=== PATIENT | male | born 1930 | race Caucasian/White ===

== ENCOUNTER 2017-03-01 11:58 | Day surgery (SDC) | payer MEDICARE ==
[2017-02-28 17:49] VITALS: BMI 28.4
--- NOTE | 2017-03-01 19:50 | OP ---
PREOPERATIVE DIAGNOSIS: History of colon polyps. PROCEDURE IN DETAIL: After informed consent was obtained, the patient placed in the left lateral de cubitus position. Anesthesia was administered per the Anesthesia Department. Forward-viewing endos cope was inserted into the rectum after perianal inspection and rectal exam were normal and passed t o the cecum. The cecum, ileocecal valve, and appendiceal orifice were normal. The prep was excelle nt. A small 3 mm polyp was seen in the cecum and removed with snare electrocautery. In the ascendi ng, 2 polyps were seen and removed with snare electrocautery. In the transverse, 2 polyps were seen and removed with snare electrocautery. In the rectum, one polyp was seen and removed with snare el ectrocautery. Diffuse diverticula were noted throughout the colon. ASSESSMENT: 1. Six colon polyps - status post polypectomy. 2. Diffuse diverticulosis coli. 3. Otherwise normal colonoscopy. RECOMMENDATIONS: Await histopathology.
== END 2017-03-01 16:15 | disposition home or self-care (01) ==
LOC: SDC 11:58
PROVIDERS: ATTEND Internal Medicine Gastroenterology
PROC: 0DBK8ZX Excision of Ascending Colon, Via Natural or Artificial Opening Endoscopic, Diagnostic (ICD-10-PCS; principal; 2017-03-01)
PROC: 0DBH8ZX Excision of Cecum, Via Natural or Artificial Opening Endoscopic, Diagnostic (ICD-10-PCS; 2017-03-01)
DX: Z12.11 Encounter for screening for malignant neoplasm of colon (principal); D12.2 Benign neoplasm of ascending colon; D12.0 Benign neoplasm of cecum; K57.30 Diverticulosis of large intestine without perforation or abscess without bleeding; F17.200 Nicotine dependence, unspecified, uncomplicated; Z88.0 Allergy status to penicillin; Z88.8 Allergy status to other drugs, medicaments and biological substances; Z79.899 Other long term (current) drug therapy; Z90.49 Acquired absence of other specified parts of digestive tract; Z95.1 Presence of aortocoronary bypass graft; Z98.890 Other specified postprocedural states; Z87.19 Personal history of other diseases of the digestive system
CPT/HCPCS: 88305

== ENCOUNTER 2017-04-01 14:28 | Observation (INO) | payer MEDICARE ==
[2017-04-01 15:03] LABS: #Basophils 0.1 thou/uL (0.0-0.2); #Eosinphils 0.2 thou/uL (0.0-0.7); #Monocytes 0.6 thou/uL (0.11-0.59); #Neutrophils 4.7 thou/uL (1.40-6.50); %Basophils 1.1 % (0.0-1.0); %Eosinophils 2.2 % (0.0-10.0); %Lymphocytes 26.4 % (21.0-51.0); %Monocytes 8.1 % (0.0-10.0); Hematocrit 44.1 % (42.0-52.0); Mean Platelet Volume 9.2 fL (7.4-10.4); Red Blood Cell (RBC) Count 5.48 mill/uL (4.70-6.10); White Blood Cell (WBC) Count 7.5 thou/uL (4.8-10.8)
[2017-04-01 15:23] LABS: ALT (SGPT) 26 U/L (8-55); AST (SGOT) 21 U/L (5-34); Alkaline Phosphatase 73 U/L (40-150); Anion Gap 9 mmol/L (10-20); BUN (Urea Nitrogen) 31 mg/dL (8.4-25.7); Bilirubin, Total 0.5 mg/dL (0.2-1.2); CK (CPK) 49 U/L (30-200); Calc. Creatinine Clearance 0 mL/min (70-130); Carbon Dioxide 28 mmol/L (23-31); Chloride 107 mmol/L (98-107); Estimated GFR-MDRD 42; Globulin 2.7 g/dL (2.4-3.5); Protein, Total 6.5 g/dL (5.8-8.1)
[2017-04-01 15:26] LABS: Troponin I Less than 0.010 ng/mL (< 0.028)
--- NOTE | 2017-04-01 16:13 | RAD ---
CHEST 1 VIEW: Date: 04/01/17 HISTORY: Left arm pain. COMPARISON: Chest 1 view dated 02/15/16. FINDINGS: Lungs are clear. No pneumothorax or effusion. Cardiac silhouette and mediastinal contour is within no rmal limits. IMPRESSION: No acute intrathoracic abnormality. POS: [facility]
[2017-04-01 18:41] LABS: Troponin I Less than 0.010 ng/mL (< 0.028)
--- NOTE | 2017-04-01 18:46 | CT ---
CT HEAD NONCONTRAST 04/01/17 HISTORY: Altered mental status. Left arm weakness. FINDINGS: No comparison. There is no evidence of acute intracranial hemorrhage or infarct. old lacunar infarct is noted at the right periventricular white matter and basal ganglia. There is no mass effect or shift of midline st ructures. The visualized paranasal sinuses remain well aerated. IMPRESSION: Evidence of old vascular insults. No acute intracranial abnormalities are demonstrated on noncontrast CT head. POS: [facility]
[2017-04-01] MEDS ORDERED: Ondansetron HCl/PF 4 MG/2 ML Vial IVP PRN (20:17)
[2017-04-01] MEDS ORDERED: Ondansetron ODT 4 MG TAB SL PRN (20:17)
[2017-04-01 21:24] VITALS: BMI 29.6
[2017-04-02] MEDS ORDERED: Furosemide 20 MG TAB PO PRN (07:58)
[2017-04-02] MEDS: Aspirin 81 mg Enteric Coated Tablet PO SCH (08:53)
[2017-04-02] MEDS ORDERED: Finasteride 5 MG TAB PO SCH (09:00)
[2017-04-02] MEDS ORDERED: Apixaban 5 MG TAB PO SCH (09:00)
[2017-04-02] MEDS: Lactinex Tablet PO SCH (09:04)
[2017-04-02 09:12] LABS: Free T3 2.02 pg/mL (1.71-3.71)
--- NOTE | 2017-04-02 12:25 | CON ---
DATE OF CONSULTATION: 04/02/2017 CARDIOLOGY CONSULTATION REASON FOR CONSULTATION: Chest pain. HISTORY OF PRESENT ILLNESS: Mr. Albrecht is a very pleasant 86-year-old white gentleman who comes to the hospital for left arm pain. He was at home just watching TV and suddenly had an onset of left upper chest pain that radiates to the left shoulder and left arm. It lasted about 30 minutes about 8/10 in intensity and it just went away on its own in the chest area, but remained on the arm. He went to bed yesterday at about 6 p.m. which is not unusual, but really not his normal. At about 8:30 p.m., his tried to wake him up and he was very hard to arouse. Eventually, he woke up and he was confused after waking up. Because he kept having pain this morning, he decided to come in for further evaluation. He has a history of coronary artery disease and he has had bypass in the past, has had a defibrillator placed as well. He follows with Dr. Mitchell. Currently, he denies any more chest pain or arm pain, but he admits he feels he does not have a good control of his left arm and left hand. He feels that he cannot feed himself adequately and feels like he misses with the spoon if he tries to. PAST MEDICAL HISTORY: 1. Coronary artery disease with history of coronary artery bypass grafting in 1991 to an OM and FRANK to the RCA. His last stress was in [address] Mitchell and it was normal. He had an EF of 25%-30% at one point and required an AICD placement. Most recent evaluation of LV function in the office was heart catheterization that happened in 10/2016. He had an occluded LAD, an occluded RCA, a patent FRANK to an OM, and patent free ANTHONY to the RCA. FRANK is also a free ANTHONY. He had good collateral flow from the RCA to the LAD. At that time, no LV gram was done, but echo was done just a week before, then he had an EF of 30%-35% with akinetic anterior wall and what appeared to be a thrombus in the apex of the LV calcified, which is thought to be probably old at that time. There was mild to moderate MR and TR. 2. Basal cell carcinoma of the face. PAST SURGICAL HISTORY: 1. Tonsillectomy. 2. Cholelithiasis. 3. Cataract surgery. 4. Cholecystectomy. 5. Defibrillator placement as well. 6. Cardioversion in the past. FAMILY HISTORY: Father with heart disease. Mother of a stroke. SOCIAL HISTORY: Occasional cigarette use. No alcohol or drugs. REVIEW OF SYSTEMS: A 12-point review of systems was done and is all negative unless stated in the history of present illness. OUTPATIENT MEDICATIONS: Include, 1. Finasteride. 2. Vitamin D3. 3. Probiotic. 4. Aricept. 5. Aspirin 81 a day. 6. Actonel. 7. Amiodarone 200 mg a day. 8. Crestor 20 mg a day. 9. Tamsulosin 0.4 capsule at bedtime. 10. Toprol-XL 25 mg. 11. Furosemide 200 mg a day. 12. Eliquis 2.5 mg twice a day, this was started at that time when his echo found possible thrombus and he has been on it since. ALLERGIES: 1. LISINOPRIL causes cough. 2. NIACIN causes nausea. 3. PENICILLIN causes skin problems. PHYSICAL EXAMINATION: VITAL SIGNS: Temperature 98.5, pulse 70, respiratory rate 18, satting 95% on room air, blood pressure 160/87. GENERAL: Awake, alert, oriented x3, in no distress. HEENT: Normocephalic, atraumatic. NECK: Supple. LUNGS: Clear. CARDIOVASCULAR: S1 and S2, no S3 or S4 noted. There is a grade 2/6 systolic murmur at the right upper sternal border. PMI is laterally displaced and diffuse. ABDOMEN: Soft. Positive bowel sounds. EXTREMITIES: Trace edema. SKIN: Warm and dry. LABORATORY DATA AND IMAGING: Laboratory work was reviewed. White count 7.5, hemoglobin 13, hematocrit 44, and platelet count of 118. Chemistry: Sodium of 140, potassium is 4.0, carbon dioxide of 20, anion gap of 9, BUN of 31, creatinine 1.57, GFR of 42, troponins are negative x3. TSH was a little above 0.05 with normal free T3 and free T4, albumin is 3.8. EKG was reviewed. CT of the brain showed no acute abnormality. There is evidence of old vascular insults. ASSESSMENT AND PLAN: 1. Chest pain: Unlikely to be cardiac, at least not an acute coronary syndrome given his coronary anatomy, which was recently valvular degenerative disease. We will probably hold on any risk stratification at this time as he had such a recent heart catheterization. We will get interrogation of his device as this may be related to some sort of arrhythmia as well. We will do an echocardiogram. Because of his age and his kidney function he is on correct dose of Eliquis. Thank you for letting us to participate in the care of your patient. We will follow. MARCO ANTONIO
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
[2017-04-02] MEDS: APIXABAN 2.5 MG PO SCH (20:36)
[2017-04-02] MEDS ORDERED: Tamsulosin HCl 0.4 MG CAP PO SCH ×4 (21:00)
[2017-04-03 08:11] VITALS: BP 140/77; TEMP 97.9
[2017-04-03] MEDS: Aspirin 81 mg Enteric Coated Tablet PO SCH (08:20)
[2017-04-03] MEDS: Lactinex Tablet PO SCH (08:20)
[2017-04-03] MEDS: APIXABAN 2.5 MG PO SCH (08:20)
[2017-04-03] MEDS ORDERED: Finasteride 5 MG TAB PO SCH ×4 (09:00)
--- NOTE | 2017-04-03 19:02 | DIS ---
HOSPITAL COURSE: Mr. Ferrera is an 86-year-old man treated by Dr. Duy Beckford with kno wn coronary artery disease who essentially presented with, 1. Left-sided chest pain, shoulder pain that radiated down his left lower extremity. Serial evaluat ion showed no evidence of a myocardial infarction. He was seen in consultation by Dr. Boss, his cu rrent symptoms were likely not cardiac in origin. He did have an echocardiogram, which showed an eje ction fraction of 35-40% with some anterior hypokinesis and inferior septal akinesis grade 1/3 diasto lic dysfunction and akinesis at the apex. 2. He reports several years of some low back pain, but has been having lower extremity weakness. He had equal and bilateral hamstring and quadriceps weakness (while his upper extremities were equal an d 5/5 in motor strength at the biceps, triceps, and hand [employer]). 3. Suppressed TSH. Thyroid function tests were obtained which showed a normal T3 and free T4, but a suppressed TSH at low level of 0.0507. I discussed with the patient and his son at the bedside how this likely represents subclinical hyperthyroidism and an Endocrinology opinion would be beneficial. 4. Patient admits to some memory loss. His daughter indicated that he had very little problem and h is son also reported that the most part he was doing quite well with some only spotty occasional shor t term memory problems. The reported dose of his Aricept was larger than a usual dose and in convers ation with the son, who would like his medications evaluated to see if some be discontinued and if so me could possibly be interacting with other medications or causing significant side effects such that they might be discontinued, it was deemed that at this time Aricept would be discontinued and he cou ld have follow up for this. ASSESSMENT: 1. Left-sided chest pain with left shoulder and left arm pain, no myocardial infarction. 2. Ischemic cardiomyopathy with ejection fraction 35-40%. 3. Chronic low back pain with some lower extremity weakness, discussed, seen Neurology for this, as well as memory loss. 4. Memory loss as per above. 5. Subclinical hyperthyroidism and in view of his history of cardiac dysrhythmias, there may be a gr eater benefit to treatment of his some clinical hyperthyroidism. 6. Chronic kidney disease with a GFR of 38 on 03/28/2017. 7. Long history of tobacco abuse, now discontinued. PLAN: 1. Discharge home today. Follow up with Dr. Beckford within 1 week. Recommend specialist referral for Endocrinology to evaluate treatment for subclinical hyperthyroidism. 2. Follow up with Cardiology within the next week or two. 3. Neurology opinion on memory loss and lower extremity weakness. HOME MEDICATIONS: Include amiodarone 200 mg daily, Crestor 20 mg daily, Eliquis 2.5 mg twice daily, Toprol-XL 12.5 mg twice daily, gabapentin 300 mg 3 times daily, Aricept discontinued, finasteride 5 m g daily, Actonel 35 mg once weekly, 81 mg aspirin daily, vitamin D 3000 units daily, Flomax 0.4 mg da chrystal, furosemide 20 mg daily, probiotic 1 daily.
== END 2017-04-03 10:34 | disposition home or self-care (01) ==
LOC: ERS 14:28 → 2SE 19:53
PROVIDERS: ADMIT Family Medicine; ATTEND Family Medicine
DX: R07.9 Chest pain, unspecified (principal); I25.5 Ischemic cardiomyopathy; M54.5 Low back pain; G89.29 Other chronic pain; M79.602 Pain in left arm; R41.3 Other amnesia; E05.90 Thyrotoxicosis, unspecified without thyrotoxic crisis or storm; N18.9 Chronic kidney disease, unspecified; I25.10 Atherosclerotic heart disease of native coronary artery without angina pectoris; R29.898 Other symptoms and signs involving the musculoskeletal system; I49.9 Cardiac arrhythmia, unspecified; Z79.01 Long term (current) use of anticoagulants; Z79.82 Long term (current) use of aspirin; Z79.899 Other long term (current) drug therapy; Z88.0 Allergy status to penicillin; Z88.8 Allergy status to other drugs, medicaments and biological substances; Z98.52 Vasectomy status; Z98.49 Cataract extraction status, unspecified eye; Z95.810 Presence of automatic (implantable) cardiac defibrillator; Z95.1 Presence of aortocoronary bypass graft; Z90.89 Acquired absence of other organs; Z90.49 Acquired absence of other specified parts of digestive tract; Z98.890 Other specified postprocedural states; Z87.442 Personal history of urinary calculi; Z87.891 Personal history of nicotine dependence
CPT/HCPCS: 70450; 71010; 80053; 82550; 82553; 84439; 84443; 84481; 84484 ×2; 85025; 93005; 93306; 94760; 99285; G0378; 36415

== ENCOUNTER 2017-07-04 10:37 | Emergency (ER) | payer MEDICARE ==
--- NOTE | 2017-07-04 11:19 | RAD ---
PORTABLE CHEST: HISTORY: Syncope. COMPARISON: 04/01/2017 FINDINGS: The lungs appear clear. No evidence of infiltrate. Parenchymal op in the right upper lung is stable and may represent scarring. Heart size is upper normal and stable. Postop sternotomy change and AI CD leads are unchanged in appearance. IMPRESSION: No acute finding or interval change. POS: [facility]
[2017-07-04 11:58] LABS: ALT (SGPT) 28 U/L (8-55); Albumin 3.5 g/dL (3.4-4.8); Alkaline Phosphatase 54 U/L (40-150); BUN (Urea Nitrogen) 25 mg/dL (8.4-25.7); Bilirubin, Total 0.6 mg/dL (0.2-1.2); CK (CPK) 44 U/L (30-200); Calc. Creatinine Clearance 0 mL/min (70-130); Calcium 8.5 mg/dL (7.8-10.44); Carbon Dioxide 19 mmol/L (23-31); Estimated GFR-MDRD 35; Globulin 3.2 g/dL (2.4-3.5); Glucose 164 mg/dL (83-110)
[2017-07-04 12:00] LABS: CKMB 1.1 ng/mL (0-6.6)
[2017-07-04 12:08] LABS: AST (SGOT) 28 U/L (5-34); Anion Gap 16 mmol/L (10-20); Chloride 110 mmol/L (98-107); Potassium 4.8 mmol/L (3.5-5.1); Protein, Total 6.4 g/dL (5.8-8.1); Sodium 140 mmol/L (136-145)
[2017-07-04 12:12] LABS: Troponin I Less than 0.010 ng/mL (< 0.028)
[2017-07-04 12:34] LABS: #Eosinphils 0.1 thou/uL (0.0-0.7); #Lymphocytes 1.3 thou/uL (1.20-3.40); #Monocytes 0.6 thou/uL (0.11-0.59); #Neutrophils 5.3 thou/uL (1.40-6.50); %Basophils 0.4 % (0.0-1.0); %Eosinophils 1.8 % (0.0-10.0); %Monocytes 8.2 % (0.0-10.0); %Neutrophils 72.6 % (42.0-75.0); Hemoglobin 14.1 g/dL (14.0-18.0); Mean Corpuscular HGB CONC 31.1 g/dL (32.0-36.0); Mean Corpuscular Hemoglobin 24.7 pg (27.0-31.0); Mean Corpuscular Volume 79.6 fl (80.0-94.0); Mean Platelet Volume 9.1 fL (7.4-10.4); Platelet Count 132 thou/uL (130-400); RBC Distribution Width 14.1 % (11.5-14.5); Red Blood Cell (RBC) Count 5.72 mill/uL (4.70-6.10); White Blood Cell (WBC) Count 7.4 thou/uL (4.8-10.8)
--- NOTE | 2017-07-04 12:35 | CT ---
CT BRAIN WITHOUT CONTRAST: HISTORY: Weakness, on Eliquis. COMPARISON: CT brain 04/01/17. FINDINGS: No acute territorial infarct or hemorrhage. No midline shift. No mass effect. Ventricular size and extraaxial CSF spaces are similar. Old basal ganglia infracts. Old infarct right caudate body. The calvarium is intact. Mild mucosal thickening of the ethmoids. There is a right-sided osseous sp ur of the osseous nasal septum. The mastoids are well aerated. Temporomandibular joints are intact. IMPRESSION: No acute intracranial abnormality. Chronic changes. POS: [facility]
[2017-07-04 13:14] LABS: Bilirubin Small (Negative); Blood, Urine Negative (Negative); Clarity CLOUDY (Clear); Glucose, Urine (Dipstick) Negative (Negative); Leukocyte Negative (Negative); Nitrite Negative (Negative); Protein, Urine (Dipstick) 30 mg/dL (Neg-Trace); Specific Gravity, Urine 1.031 (1.002-1.036); Urobilinogen 0.2 mg/dL (0.2-1.0)
[2017-07-04 13:19] LABS: Bacteria/HPF None Seen HPF (None Seen); Pathc Cast-AUWi Flag 1.89 (0-2.49); RBC/HPF 0-3 HPF (0-3)
[2017-07-04 13:38] LABS: Crystals/HPF 2+ CA OXALATE HPF (Negative); Renal Epithelial None Seen HPF (0-3); Transitional Epithelial NONE SEEN HPF (0-3)
--- NOTE | 2017-07-09 13:29 | EKG ---
Test Reason : Blood Pressure : / mmHG Vent. Rate : 077 BPM Atrial Rate : 077 BPM P-R Int : 000 ms QRS Dur : 126 ms QT Int : 468 ms P-R-T Axes : 000 104 105 degrees QTc Int : 529 ms Atrial-paced rhythm with prolonged AV conduction Rightward axis Non-specific intra-ventricular conduction block Cannot rule out Anteroseptal infarct , age undetermined Abnormal ECG Confirmed by REJI FELDMAN M.D. ([id number]), story editor JOSE ESTEBAN ([id number]) on 07/09/2017 1:29:03 PM Referred By: Confirmed By:REJI FELDMAN M.D.
== END 2017-07-04 16:48 | disposition home or self-care (01) ==
LOC: ERS 10:37
DX: I95.1 Orthostatic hypotension (principal); I25.10 Atherosclerotic heart disease of native coronary artery without angina pectoris; I10 Essential (primary) hypertension; N40.0 Benign prostatic hyperplasia without lower urinary tract symptoms; Z87.891 Personal history of nicotine dependence; Z79.899 Other long term (current) drug therapy; Z87.442 Personal history of urinary calculi
CPT/HCPCS: 70450; 71045; 80053; 81003; 81015; 82550; 82553; 84484; 85025; 87086; 93005; 94760; 96360; 96361

== ENCOUNTER 2017-07-05 07:57 | Outpatient (CLI) | payer MEDICARE ==
[2017-07-05 09:18] LABS: Anion Gap 10 mmol/L (10-20); BUN (Urea Nitrogen) 21 mg/dL (8.4-25.7); Calc. Creatinine Clearance 0 mL/min (70-130); Calcium 8.5 mg/dL (7.8-10.44); Carbon Dioxide 26 mmol/L (23-31); Chloride 108 mmol/L (98-107); Estimated GFR-MDRD 37; Glucose 110 mg/dL (83-110); Potassium 4.1 mmol/L (3.5-5.1); Sodium 140 mmol/L (136-145)
[2017-07-05 09:30] LABS: Bilirubin Small (Negative); Blood, Urine Trace (Negative); Glucose, Urine (Dipstick) Negative (Negative); Leukocyte Negative (Negative); Nitrite Negative (Negative); Protein, Urine (Dipstick) 30 mg/dL (Neg-Trace); Urobilinogen 0.2 mg/dL (0.2-1.0)
[2017-07-05 09:32] LABS: Bacteria/HPF None Seen HPF (None Seen); Hyaline Casts/LPF 7-10 HYALINE CAST LPF (0-3 Hyaline); Pathc Cast-AUWi Flag 1.35 (0-2.49); RBC/HPF 0-3 HPF (0-3); Squamous Epithelial 0-3 HPF (0-3)
--- NOTE | 2017-07-05 09:34 | ULT ---
BILATERAL RENAL ULTRASOUND: History: Polycystic kidneys. Comparison: 10-26-16 FINDINGS: Right kidney measures 11.1 x 5.8 x 7.6 cm. Left kidney measures 9.9 x 4.3 x 7.8 cm. There are numerou s bilateral renal cysts. The prostate is enlarged. The pre void urinary bladder volume is 26 ml. Nume abelino bilateral renal cysts are present. Right sided septated cyst is again seen measuring 5.4 x 7.8 c m. There is a collection of smaller cysts in the right kidney. No definite solid mass is appreciated. Largest cyst in the left kidney measures 4.2 x 4.8 cm. IMPRESSION: 1. Similar appearance of polycystic kidneys. 2. Prostatomegaly. POS: [facility]
[2017-07-05 10:11] LABS: Clarity Clear (Clear); Specific Gravity, Urine 1.022 (1.002-1.036)
== END 2017-07-05 07:58 | disposition home or self-care (01) ==
LOC: ULT 07:57
PROVIDERS: ATTEND Urology
DX: Q61.3 Polycystic kidney, unspecified (principal); N18.9 Chronic kidney disease, unspecified; Z87.442 Personal history of urinary calculi; N42.89 Other specified disorders of prostate
CPT/HCPCS: 76770; 80048; 81001; 87077; 87086; 87186

== ENCOUNTER 2017-08-17 06:33 | Emergency (ER) | payer MEDICARE ==
[2017-08-17 07:41] LABS: #Eosinphils 0.2 thou/uL (0.0-0.7); #Lymphocytes 1.3 thou/uL (1.20-3.40); #Monocytes 0.6 thou/uL (0.11-0.59); #Neutrophils 3.8 thou/uL (1.40-6.50); %Basophils 0.5 % (0.0-1.0); %Eosinophils 3.8 % (0.0-10.0); %Lymphocytes 22.3 % (21.0-51.0); %Monocytes 9.3 % (0.0-10.0); %Neutrophils 64.2 % (42.0-75.0); Hemoglobin 13.7 g/dL (14.0-18.0); Mean Corpuscular HGB CONC 31.5 g/dL (32.0-36.0); Mean Corpuscular Volume 79.6 fl (80.0-94.0); Mean Platelet Volume 8.6 fL (7.4-10.4); Platelet Count 143 thou/uL (130-400); RBC Distribution Width 14.2 % (11.5-14.5); Red Blood Cell (RBC) Count 5.47 mill/uL (4.70-6.10)
[2017-08-17 08:07] LABS: ALT (SGPT) 30 U/L (8-55); AST (SGOT) 24 U/L (5-34); Albumin 3.7 g/dL (3.4-4.8); Alkaline Phosphatase 52 U/L (40-150); Anion Gap 10 mmol/L (10-20); BUN (Urea Nitrogen) 26 mg/dL (8.4-25.7); Bilirubin, Total 0.6 mg/dL (0.2-1.2); Calc. Creatinine Clearance 0 mL/min (70-130); Calcium 8.9 mg/dL (7.8-10.44); Carbon Dioxide 27 mmol/L (23-31); Chloride 108 mmol/L (98-107); Estimated GFR-MDRD 37; Globulin 2.6 g/dL (2.4-3.5); Glucose 118 mg/dL (83-110); Protein, Total 6.3 g/dL (5.8-8.1); Sodium 141 mmol/L (136-145)
[2017-08-17 08:12] LABS: Bilirubin Negative (Negative); Blood, Urine Negative (Negative); Clarity CLEAR (Clear); Glucose, Urine (Dipstick) Negative (Negative); Leukocyte Negative (Negative); Nitrite Negative (Negative); Protein, Urine (Dipstick) Trace mg/dL (Neg-Trace); Specific Gravity, Urine 1.016 (1.002-1.036)
== END 2017-08-17 10:10 | disposition home or self-care (01) ==
LOC: ERS 06:33
DX: I95.1 Orthostatic hypotension (principal); E78.00 Pure hypercholesterolemia, unspecified; N40.0 Benign prostatic hyperplasia without lower urinary tract symptoms; I10 Essential (primary) hypertension; Z87.891 Personal history of nicotine dependence; Z79.899 Other long term (current) drug therapy
CPT/HCPCS: 36415; 80053; 81003; 85025; 93005; 99284

== ENCOUNTER 2018-01-16 22:20 | Inpatient (IN) | payer MEDICARE ==
[~2018-01-16 22:20] MED LIST: ISOVUE-370 76%-LOCM 1 ML ONE
[2018-01-16 23:08] LABS: #Eosinphils 0.1 thou/uL (0.0-0.7); #Lymphocytes 1.9 thou/uL (1.20-3.40); #Monocytes 1.4 thou/uL (0.11-0.59); #Neutrophils 9.1 thou/uL (1.40-6.50); %Basophils 0.1 % (0.0-1.0); %Eosinophils 1.2 % (0.0-10.0); %Lymphocytes 14.8 % (21.0-51.0); %Monocytes 10.8 % (0.0-10.0); %Neutrophils 73.1 % (42.0-75.0); Hemoglobin 13.8 g/dL (14.0-18.0); Mean Corpuscular HGB CONC 31.6 g/dL (32.0-36.0); Mean Corpuscular Hemoglobin 24.6 pg (27.0-31.0); Mean Corpuscular Volume 77.9 fL (78.0-98.0); Mean Platelet Volume 8.8 fL (7.4-10.4); Platelet Count 166 thou/uL (130-400); RBC Distribution Width 13.7 % (11.5-14.5); Red Blood Cell (RBC) Count 5.61 mill/uL (4.70-6.10); White Blood Cell (WBC) Count 12.5 thou/uL (4.8-10.8)
--- NOTE | 2018-01-16 23:09 | RAD ---
SINGLE VIEW CHEST: HISTORY: Fever and seizure like activity. COMPARISON: 07/04/2017 FINDINGS: A single view of the chest shows a cardiomediastinal silhouette which is at the upper limits of dilia l in size. The patient is status post CABG. The pacemaker is unchanged in position. There is no ev idence of consolidation, mass, or pleural effusion. Degenerative changes are seen in the spine. IMPRESSION: No evidence of acute cardiopulmonary disease. POS: [facility]
[2018-01-16 23:32] LABS: ALT (SGPT) 25 U/L (8-55); AST (SGOT) 25 U/L (5-34); Albumin 4.2 g/dL (3.4-4.8); Alkaline Phosphatase 73 U/L (40-150); Anion Gap 15 mmol/L (10-20); BUN (Urea Nitrogen) 30 mg/dL (8.4-25.7); Bilirubin, Total 0.6 mg/dL (0.2-1.2); Calc. Creatinine Clearance 0 mL/min (70-130); Calcium 9.3 mg/dL (7.8-10.44); Carbon Dioxide 24 mmol/L (23-31); Chloride 105 mmol/L (98-107); Estimated GFR-MDRD 41; Globulin 3.1 g/dL (2.4-3.5); Glucose 103 mg/dL (83-110); Potassium 4.9 mmol/L (3.5-5.1); Protein, Total 7.3 g/dL (5.8-8.1); Sodium 139 mmol/L (136-145)
[2018-01-16 23:47] LABS: Bilirubin Negative (Negative); Blood, Urine Negative (Negative); Clarity CLEAR (Clear); Glucose, Urine (Dipstick) Negative (Negative); Leukocyte Negative (Negative); Nitrite Negative (Negative); Protein, Urine (Dipstick) Negative (Neg-Trace); Specific Gravity, Urine 1.017 (1.002-1.036)
[2018-01-16] MEDS ORDERED: Ondansetron HCl/PF 4 MG/2 ML Vial ONE ×2 (23:47→23:48)
[2018-01-17] MEDS ORDERED: Cefepime 2 GM VIAL ONE (00:40)
[2018-01-17] MEDS ORDERED: Acetaminophen 325 MG TAB ONE ×2 (07:06→11:47)
--- NOTE | 2018-01-17 11:35 | CT ---
PRELIMINARY REPORT/[facility]/EMERGENTY AFTER-HOURS PROCEDURE CT Abdomen and Pelvis With Intravenous Contrast EXAM DATE/TIME: 01/17/2018 12:12 AM CLINICAL HISTORY: 87 years old, male; Pain; Other: Back pain; Prior surgery; Patient HX: Er 24; 87 year old male with h istory of HTN and cad presents with rigors. Patient endorses blood in urine and bilateral back pain l ocated below rib cage. Patient endorses shortness of breath associated with back pain. Patient has hi story of kidney stones requiring surgical intervention in the past. TECHNIQUE: Axial computed tomography images of the abdomen and pelvis with intravenous contrast. Coronal reformatted images were created and reviewed. COMPARISON: No relevant prior studies available. FINDINGS: Lower thorax: Cardiac device in place. ABDOMEN: Liver: Multiple small hepatic cysts. Gallbladder and bile ducts: Prior cholecystectomy. Pancreas: 3 cm pancreatic body mass, potentially malignant. Spleen: Normal. No splenomegaly. Adrenals: Normal. No mass. Kidneys and ureters: Polycystic kidneys. Nonobstructing stones in the kidneys bilaterally. No uretera l stones. No obstructive uropathy. Stomach and bowel: Colonic diverticulosis. No diverticulitis. No bowel wall thickening or intestinal obstruction. Appendix: Normal appendix. PELVIS: Bladder: Unremarkable as visualized. Reproductive: Prostatomegaly. ABDOMEN and PELVIS: Intraperitoneal space: Normal. No free air. No significant fluid collection. Bones/joints: No acute fracture. No dislocation. Soft tissues: Midline epigastric ventral abdominal hernia containing fat only. Right inguinal hernia containing fat only. Vasculature: Normal. No abdominal aortic aneurysm. Lymph nodes: Normal. No enlarged lymph nodes. Other findings: 3 cm AAA. No rupture. IMPRESSION: 1. 3 cm pancreatic body mass, potentially malignant. 2. Polycystic kidneys. Thank you for allowing us to participate in the care of your patient. Dictated and Authenticated by: Arnoldo Murphy MD 01/17/2018 1:12 AM Central Time ([place] & [place]) FINAL REPORT EMERGENT AFTER HOURS CT ABDOMEN AND PELVIS WITH IV CONTRAST: 01/17/2018 HISTORY: Blood in urine and bilateral back pain, located just below the rib cage. Shortness of breath associa armando with back pain. History of kidney stones, requiring surgical intervention. COMPARISON: Noncontrast CT abdomen and pelvis from 09/22/2005. IMPRESSION: 1. Hypodense mass-like structure in the body of the pancreas. This appeared to have been present on a recent noncontrast CT scan examination. There was evidence of a cystic appearing lesion in this r egion on prior exam on 05/07/2013. This mass-like structure cannot be accurately characterized on th is examination. Endoscopic ultrasound may be helpful for further evaluation, as MRI is unable to be performed due to cardiac AICD leads in place. 2. Subcentimeter, [id number]-[id number], hypodense lesions are again seen within the liver, and w ere also seen on the prior nonenhanced CT exam, with the larger hypodense cystic structure in the lat eral segment of the left hepatic lobe, also stable in size compared to the study in 2016, and this do es demonstrate fluid attenuation, suggesting a cyst. 3. Multiple bilateral renal cysts, the largest in the inferior pole, right kidney, measuring 7.8 cm. 4. Nonobstructing inferior pole bilateral renal calculi, measuring approximately 4 to 5 mm. 5. Atherosclerotic vascular calcifications in the abdominal aorta and iliac arteries, with eccentric atherosclerotic plaque. There is mild focal aneurysmal dilatation of the infrarenal abdominal aorta , measuring 3.5 cm in maximal AP dimensions. There is also mild aneurysmal dilatation of the right c ommon iliac artery, which measures 2 cm. 6. Colonic diverticulosis. 7. No CT evidence of appendicitis. 8. Fat-containing ventral abdominal hernia, which is at the level of the surgical clips within the u pper abdomen. 9. Enlargement of the prostate gland, measuring 6.2 cm in transverse dimensions 10. Fat-containing right inguinal hernia. 11. Height loss of the central superior endplate of the L2 vertebral body, stable from prior examina tion, may represent a mild remote compression fracture. The findings are in agreement with the preliminary report by Liu. POS: [facility]
[2018-01-17] MEDS ORDERED: HYDROcodone/Acetaminophen 5/325 mg Tablet PO PRN (12:31)
[2018-01-17] MEDS ORDERED: Furosemide 20 MG TAB PO PRN (12:36)
[2018-01-17 13:30] VITALS: BMI 29.0
[2018-01-17] MEDS: Acetaminophen 325 MG TAB PO PRN (18:29)
[2018-01-17] MEDS: Midodrine HCl 5 MG TAB PO SCH (20:38)
[2018-01-17] MEDS: Tamsulosin HCl 0.4 MG CAP PO SCH (20:38)
[2018-01-17] MEDS: Rosuvastatin 20 MG TAB PO SCH (20:38)
[2018-01-17] MEDS ORDERED: DONEPEZIL HCL 10 MG PO SCH (21:00)
--- NOTE | 2018-01-18 01:53 | HP ---
DATE OF ADMISSION: 01/17/2018 ADMITTING PHYSICIAN: Duy Beckford MD HISTORY OF PRESENT ILLNESS: Patient is an 87-year-old male who was brought to the emergency room, co mplaining of fever, apparently "seizure-like activity" possibly related to his fever, he is noted to be shaking and trembling. There was no evidence of any nausea, vomiting, or diarrhea were seen and e valuated in the emergency room. Chest x-ray did not show anything, fairly significant, but he felt l wagner to have some type of early pneumonic process as all other workup was negative. He did have a CT scan of his abdomen, which did reveal a pancreatic cystic lesion; however, this has been present befo re and is relatively unchanged in the past. No evidence of any other issues are otherwise noted. It was noted he had elevated white count. By the time, I was able to see the patient who was resting m ore comfortably. He reported some headache, backache. No nausea, vomiting, diarrhea, no chest pain, or shortness of breath. He is feeling much better at this time. ALLERGIES: He is allergic to PENICILLIN and ONDANSETRON. CURRENT MEDICATIONS: Tamsulosin 0.4 mg daily, sertraline 50 mg daily, Lasix 20 mg daily, Crestor 20 mg daily, midodrine 5 mg at bedtime and 10 mg q.a.m., amiodarone 200 mg daily, aspirin 81 mg daily, f inasteride 5 mg daily. PAST MEDICAL HISTORY: Significant for atherosclerotic coronary artery disease, polycystic kidneys, b enign prostatic hypertrophy, chronic low back pain, kidney stones. PAST SURGICAL HISTORY: Positive for coronary artery bypass graft, tonsillectomy, cholecystectomy, ki dney stone surgery, vasectomy as well as a defibrillator placement. SOCIAL AND PERSONAL HISTORY: His has recently . He now lives at the . REVIEW OF SYSTEMS: Gastrointestinal: Negative. Genitourinary: Negative. Cardiovascular: Negativ e. Respiratory: Positive for cough and congestion. Musculoskeletal: Positive for lower back pain. PHYSICAL EXAMINATION: VITAL SIGNS: His temperature is 99.3, pulse ox 96% on 2 liters, BP 130/74, pulse 88 and regular. GENERAL: He is alert, active, in no acute distress. HEENT: Normocephalic, atraumatic. Sclerae and conjunctivae clear. NECK: Supple, full range of motion. No masses, no bruits. Thyroid is midline. No thyromegaly or t hyroid masses. LUNGS: Clear. HEART: Reveals a regular rate and rhythm without murmurs, gallops, or rubs. ABDOMEN: Soft, nontender, bowel sounds are active. No hepatosplenomegaly is noted. No evidence of rebound or guarding. No tenderness otherwise noted. EXTREMITIES: No clubbing, edema, or cyanosis. LABORATORY AND X-RAY FINDINGS: Chest x-ray shows there does not reveal any type of pneumonic process at this time. Significant for white blood count of 12.5, hemoglobin 13.8, hematocrit 43.7. [employer] ry: Sodium 139, potassium 4.9, chloride 105, CO2 of 24, BUN 30, creatinine 1.6. Urinalysis clear. Influenza swabs are negative and normal. CT of the abdomen does reveal a lesion to the pancreas ____ _ it was noted on previous examinations as far back as 2012. No other significant findings otherwise noted. IMPRESSION: Febrile syndrome, possibly could be related to viral illness, still could represent an e stephen pneumonia. PLAN: 1. The patient will be admitted, treated as a pneumonic process, placed on Levaquin 750 IV piggyback daily. 2. DuoNeb will be given. 3. We will monitor the patient through the evening and tomorrow.
[2018-01-18] MEDS: Acetaminophen 325 MG TAB PO PRN ×2 (06:40→23:21)
[2018-01-18] MEDS: Aspirin 81 mg Enteric Coated Tablet PO SCH (08:46)
[2018-01-18] MEDS: Finasteride 5 MG TAB PO SCH (08:46)
[2018-01-18] MEDS: Lactinex Tablet PO SCH (08:46)
[2018-01-18] MEDS: Amiodarone 200 MG TAB PO SCH (08:47)
[2018-01-18] MEDS ORDERED: Midodrine HCl 5 MG TAB PO SCH (09:00)
--- NOTE | 2018-01-18 13:50 | PRG ---
DATE OF SERVICE: 01/18/2018 SUBJECTIVE: Mr. Ferrera is resting better. He is still complaining of lower back pain. He has no t noted any cough, congestion, nausea, vomiting. PHYSICAL EXAMINATION: VITAL SIGNS: He has remained afebrile since admitted to the hospital, T-max is 98.9, blood pressure 103/55, O2 sats 94% on room air. GENERAL: He is alert, active, in no distress. LUNGS: Reveal bilateral breath sounds without rales or rhonchi. HEART: Reveals no murmur. Blood cultures thus far negative. Urine cultures thus far is negative. IMPRESSION: 1. Fever, possible pneumonia, possible sepsis, responding well to antibiotic therapy. 2. Pancreatic mass of unknown significance. I have reviewed this with the radiologist. This does n ot appear to be changed from 2013. 3. Lower back pain, probable arthritic. PLAN: Continue current antibiotic therapy, possibly could be discharged as early as tomorrow.
[2018-01-18 19:55] VITALS: TEMP 98.1
[2018-01-18] MEDS: Tamsulosin HCl 0.4 MG CAP PO SCH (20:58)
[2018-01-18] MEDS: Midodrine HCl 5 MG TAB PO SCH (20:58)
[2018-01-18] MEDS: Rosuvastatin 20 MG TAB PO SCH (20:58)
[2018-01-19] MEDS ORDERED: Midodrine HCl 5 MG TAB PO SCH (06:00)
[2018-01-19 07:57] VITALS: BP 123/68
[2018-01-19] MEDS: Aspirin 81 mg Enteric Coated Tablet PO SCH (08:51)
[2018-01-19] MEDS: Amiodarone 200 MG TAB PO SCH (08:51)
[2018-01-19] MEDS: Finasteride 5 MG TAB PO SCH (08:51)
[2018-01-19] MEDS: Lactinex Tablet PO SCH (08:51)
--- NOTE | 2018-01-19 13:01 | PRG ---
DATE OF SERVICE: 01/19/2018 Mr. Ferrera is doing well. He verbalizes no medical complaints. He is having no further fever. PHYSICAL EXAMINATION: VITAL SIGNS: Temperature 98.1, BP 123/68. LUNGS: Clear. HEART: Reveals no murmur. LABORATORY: Blood cultures remained negative. Urine cultures negative. He did have an abscess noted to his forehead at this time. If had purulent drainage, now no further drainage noted. IMPRESSION: 1. Possible septicemia with a skin infection, now controlled. 2. Pancreatic mass found by CT scan. No further workup has been requested by the patient. 3. Atherosclerotic coronary artery disease. PLAN: The patient will be discharged home today. Follow up with me in 1 week.
--- NOTE | 2018-01-20 01:08 | DIS ---
DATE OF ADMISSION: 01/17/2018 DATE OF DISCHARGE: 01/19/2018 DISCHARGE DIAGNOSES: 1. Septicemia. 2. Cellulitis of the forehead. 3. Probable pneumonia. 4. History of atherosclerotic coronary artery disease. 5. Pancreatic mass found on CT scan. ADMITTING PHYSICIAN: Duy Beckford MD HOSPITAL SUMMARY: The patient is an 87-year-old male who presented to the emergency room complaining of fever, rigors, and chills. He was seen and evaluated in the ER. Chest x-ray showed a possible l ow-grade pneumonia, otherwise lab was all normal. He was admitted to the hospital IV Levaquin for possible pneumonia protocol. CT scan of the abdomen revealed a pancreatic mass. This mass had b een present since 2012, it is relatively unchanged. Does not seem to show any biliary duct dilatatio n. The patient's hospital course was one of slow and steady improvement. He developed a small abscess t o his forehead, that was self-drained. This was thought to be the source of his septicemia. He was continued on IV Levaquin. I discussed the findings of the CT scan. The patient understood there was a mass there, that was relatively unchanged from previous exam. The endoscopic ultrasound could be done. any further workup. He was discharged to home on his home medications as well as clinda mycin 150 mg 2 tablets p.o. t.i.d. for 5 days. He will see me back in followup in 1 week.
--- NOTE | 2018-01-28 12:17 | EKG ---
Test Reason : Blood Pressure : / mmHG Vent. Rate : 082 BPM Atrial Rate : 375 BPM P-R Int : 000 ms QRS Dur : 126 ms QT Int : 380 ms P-R-T Axes : 000 085 103 degrees QTc Int : 443 ms Poor data quality, interpretation may be adversely affected Atrial-paced rhythm with prolonged AV conduction Non-specific intra-ventricular conduction block Cannot rule out Anteroseptal infarct , age undetermined Abnormal ECG Confirmed by WILMAN FLOREZ ([id number]), marketing editor JOSE ESTEBAN ([id number]) on 01/28/2018 12:17:37 PM Referred By: BUCK FLOREZ Confirmed By:WILMAN FLOREZ
== END 2018-01-19 13:13 | disposition home or self-care (01) | DRG 871 ==
LOC: ERS 22:20 → ERHOLD 01-17 01:31 → ONC 01-17 18:13
PROVIDERS: ADMIT Family Medicine; ATTEND Family Medicine
DX: A41.9 Sepsis, unspecified organism (principal); J18.9 Pneumonia, unspecified organism; K86.2 Cyst of pancreas; L03.211 Cellulitis of face; Z88.0 Allergy status to penicillin; Z88.8 Allergy status to other drugs, medicaments and biological substances; Z79.82 Long term (current) use of aspirin; I25.10 Atherosclerotic heart disease of native coronary artery without angina pectoris; Z95.1 Presence of aortocoronary bypass graft; Z95.810 Presence of automatic (implantable) cardiac defibrillator
CPT/HCPCS: 36415; 71045; 74177; 80053; 81003; 83605; 85025; 87040; 87086; 87804; 93005; 96361; 96365; 96375; J0692; J1956; J2270; J2405; J3370; J7620

== ENCOUNTER 2018-02-24 09:02 | Outpatient (CLI) | payer MEDICARE ==
[2018-02-24 09:28] LABS: Anion Gap 10 mmol/L (10-20); BUN (Urea Nitrogen) 27 mg/dL (8.4-25.7); Calc. Creatinine Clearance 0 mL/min (70-130); Calcium 9.2 mg/dL (7.8-10.44); Carbon Dioxide 27 mmol/L (23-31); Chloride 107 mmol/L (98-107); Estimated GFR-MDRD 39; Glucose 149 mg/dL (83-110); Potassium 3.9 mmol/L (3.5-5.1); Sodium 140 mmol/L (136-145)
--- NOTE | 2018-02-24 10:20 | ULT ---
RENAL SONOGRAM: HISTORY: Renal cysts. FINDINGS: The right kidney measures up to 9.3 cm with multiple cysts. The largest is at the inferior pole, whe re an exophytic cyst measures up to 8.1 cm in greatest diameter. No hydronephrosis or solid mass. The urinary bladder is unremarkable. The left kidney measures up to 9.7 cm and also has multiple cysts, measuring up to 5.3 cm at the supe rior pole. No solid masses or hydronephrosis. IMPRESSION: Large bilateral renal cyst. No evidence of urinary tract obstruction. POS: [facility]
== END 2018-02-24 09:03 | disposition home or self-care (01) ==
LOC: BICULT 09:02
PROVIDERS: ATTEND Urology
DX: N18.9 Chronic kidney disease, unspecified (principal); Q61.3 Polycystic kidney, unspecified; Z87.442 Personal history of urinary calculi
CPT/HCPCS: 36415; 76770; 80048

== ENCOUNTER 2018-06-23 09:05 | Outpatient (CLI) | payer MEDICARE ==
--- NOTE | 2018-06-23 09:58 | RAD ---
CHEST TWO VIEWS: HISTORY: Bronchitis. Cough and chest pain for two months, on the left side. COMPARISON: 01/16/2018 FINDINGS: Two views of the chest show a normal sized cardiomediastinal silhouette. The patient is status post sternotomy. The pacemaker is unchanged in position. There are increased interstitial markings. The re appear to be superimposed air space opacities in the right lung, which may represent involving inf iltrates. IMPRESSION: Right-sided infiltrates. POS: [facility]
== END 2018-06-23 09:06 | disposition home or self-care (01) ==
LOC: BICRAD 09:05
PROVIDERS: ATTEND Physician Assistant Medical
DX: J40 Bronchitis, not specified as acute or chronic (principal); R91.8 Other nonspecific abnormal finding of lung field
CPT/HCPCS: 71046